=== PATIENT | male | born 1950 | race Caucasian/White ===

== ENCOUNTER 2021-01-17 19:01 | Emergency (ER) | payer OTHER ==
[2021-01-17 19:45] LABS: HEMOGLOBIN 13.1 gm/dl (14.0-17.5); RED BLOOD COUNT 3.75 M/UL (4.20-5.50); WHITE BLOOD COUNT 7.7 K/UL (4.5-11.0)
[2021-01-17 20:09] LABS: BUN/CREATININE RATIO 16 (0-10)
== END 2021-01-18 02:00 | disposition short-term general hospital (02) ==
LOC: ER1 19:01
PROVIDERS: Emergency Medicine
DX: R41.0 Disorientation, unspecified (principal); R93.0 Abnormal findings on diagnostic imaging of skull and head, not elsewhere classified; E11.9 Type 2 diabetes mellitus without complications; I11.9 Hypertensive heart disease without heart failure; Z20.822 Contact with and (suspected) exposure to COVID-19; Z86.73 Personal history of transient ischemic attack (TIA), and cerebral infarction without residual deficits
CPT/HCPCS: 70450; 80053; 80307; 81001; 82550; 82553; 82962; 83605; 83735; 83874; 84484; 85025; 93005; 96374; 99285; G0480; J1100; U0002